=== PATIENT | male | born 1970 | race African-American/Black ===

== ENCOUNTER 2020-07-21 11:17 | Emergency (ER) | payer MEDICAID ==
[~2020-07-21] VITALS: Ht 180.3 cm; Wt 95.0 kg
[2020-07-21 11:41] VITALS: BP 134/83
[2020-07-21] MEDS ORDERED: CEFTRIAXONE SODIUM 1 G/VIAL IM ONE (12:30)
[2020-07-21] MEDS ORDERED: LIDOCAINE HCL 1% 20ML VIAL (Pyxis) INJ INFIL ONE (12:30)
== END 2020-07-21 12:49 | disposition home or self-care (01) ==
LOC: ER 11:17
DX: U07.1 COVID-19 (principal); J12.89 Other viral pneumonia; I10 Essential (primary) hypertension; E11.9 Type 2 diabetes mellitus without complications
CPT/HCPCS: 71045; 93005; 99285; C9803; U0003